=== PATIENT | male | born 1950 | race Caucasian/White ===

== ENCOUNTER → 2016-11-19 | Outpatient (CLI) | payer BC ==
--- NOTE | 2016-11-19 15:03 | KCIC ---
MRI of the cervical spine without contrast 11/19/2016 CLINICAL HISTORY: Neck pain which radiates down the left arm. TECHNIQUE: Unenhanced T1-weighted, T2-weighted and inversion recovery sagittal and gradient echo and T2-weighted axial images of the cervical spine were obtained. FINDINGS: Mild lateral curvature of the cervical spine is seen convex to the left. There is straightening of the normal cervical lordosis. Degenerative signal changes are seen involving all of the disks of the cervical spine. Degenerative signal changes are seen within the marrow surrounding these discs. Loss of height of the C5-6 and C6-7 discs is noted. No area of abnormal signal intensity is seen involving the cervical spinal cord. At the C2-3 disc space there is a mild generalized disc bulge. Degenerative changes are seen involving the uncovertebral and facet joints, right greater than left. These findings when combined do not result in significant central spinal canal or neural foraminal stenosis. At the C3-4 disc space there is a mild generalized disc bulge. Degenerative changes are seen involving the uncovertebral and facet joints bilaterally. Superimposed on this disc bulge is a focal central disc protrusion. This measures 2 mm in AP diameter. Degenerative changes are seen involving the uncovertebral and facet joints, right greater than left. These findings when combined do not result in significant central spinal canal stenosis. Mild right neural foraminal stenosis is seen. The left neural foramen is patent. At the C4-5 disc space there is a mild generalized disc bulge. This is eccentric to the left. Degenerative changes are seen involving the uncovertebral and facet joints bilaterally. These findings efface the anterior and posterior CSF resulting in mild central spinal canal stenosis without evidence of cord impingement. Mild to moderate left greater than right neural foraminal stenosis is seen. At the C5-6 disc space there is a mild generalized disc bulge. Degenerative changes are seen involving the uncovertebral and facet joints, right greater than left. These findings when combined do not result in significant central spinal canal stenosis. Mild to moderate right greater than left neural foraminal stenosis is seen. At the C6-7 disc space there is a mild to moderate generalized disc bulge. Degenerative changes are seen involving the uncovertebral and facet joints bilaterally. These findings when combined efface the anterior CSF without resulting in significant central spinal canal stenosis. Mild bilateral neural foraminal stenosis is seen. At the C7-T1 disc space there is a mild generalized disc bulge. Degenerative changes are seen involving the facet joints, left greater than right. These findings do not result in significant central spinal canal stenosis. Mild left neural foraminal stenosis is seen. IMPRESSION: Degenerative changes are seen throughout the cervical spine. These findings result in mild central spinal canal stenosis without evidence of cord impingement at C4-5. Multilevel neural foraminal stenosis of varying severity is seen as outlined above. Electronically signed by: Alejandro Gomes MD (11/19/2016 2:59 PM) [id number]
== END | disposition home or self-care (01) ==
LOC: KCIC MRI 13:29
DX: M47.892 Other spondylosis, cervical region (principal); M48.02 Spinal stenosis, cervical region; M99.81 Other biomechanical lesions of cervical region
CPT/HCPCS: 72141